=== PATIENT | male | born 1935 | race Caucasian/White ===

== ENCOUNTER 2023-05-12 07:49 | Inpatient (IN) | payer MEDICARE, BC ==
[~2023-05-12] VITALS: Ht 165.1 cm; Wt 67.1 kg
[2023-05-12] MEDS ORDERED: VANCOMYCIN 1 GM in IV D5W 250 ML IV ONE (08:00)
[2023-05-12] MEDS ORDERED: CEFEPIME 1 GM in IV D5W 50 ML IV ONE ×2 (08:00→14:00)
[2023-05-12] MEDS ORDERED: SEMA0.25 SQ (08:27)
[2023-05-12] MEDS ORDERED: PANT40TA2 PO (08:27)
[2023-05-12] MEDS ORDERED: GUAI100S11 PO (08:27)
[2023-05-12] MEDS ORDERED: TRIA80OI TP (08:27)
[2023-05-12] MEDS ORDERED: INSU100V37 SQ (08:27)
[2023-05-12] MEDS ORDERED: LIDO30CR TP (08:27)
[2023-05-12] MEDS ORDERED: BENZ-13 PO (08:27)
[2023-05-12] MEDS ORDERED: ALLO100T56 PO (08:27)
[2023-05-12] MEDS ORDERED: POLY17PO4 PO (08:27)
[2023-05-12] MEDS ORDERED: APIX2.5T PO (08:27)
[2023-05-12] MEDS ORDERED: LUBI24CA5 PO (08:27)
[2023-05-12] MEDS ORDERED: ATOR10TA PO (08:27)
[2023-05-12] MEDS ORDERED: CHOL100043 PO (08:27)
[2023-05-12] MEDS ORDERED: MELA5TAB PO (08:27)
[2023-05-12] MEDS ORDERED: AMLO-212 PO (08:27)
[2023-05-12] MEDS ORDERED: THIA100T70 PO (08:27)
[2023-05-12] MEDS ORDERED: SENN-261 PO (08:27)
[2023-05-12] MEDS ORDERED: VENL37.55 PO (08:27)
[2023-05-12] MEDS ORDERED: CEFD300C3 PO (08:27)
[2023-05-12] MEDS ORDERED: MIRT7.5T10 PO (08:27)
[2023-05-12] MEDS ORDERED: ACET-2605 PO (08:27)
[2023-05-12] MEDS ORDERED: ASPI-1420 PO (08:27)
[2023-05-12] MEDS ORDERED: CARV3.122 PO (08:27)
[2023-05-12] MEDS ORDERED: BISA10SU11 RC (08:27)
[2023-05-12 08:51] LABS: ABG BASE EXCESS -3.2 mmol/L; ABG OXYGEN SATURATION 98.4 % (92.0-98.5); ABG PH 7.448 (7.350-7.450); ABG PO2 145.3 mmHg (75.0-100.0); ABG TOTAL HEMOGLOBIN 8.2 G/dL (13.5-18.0); COHb 0.2 % (0.5-1.5); MetHb 0.3 % (0.0-1.5); O2Hb 97.9 % (94.0-97.0); SITE, ABG Left Radial; VENT MODE, BG NRB @15L
[2023-05-12 09:06] LABS: CALCIUM, SERUM 8.5 mg/dL (8.5-10.1); CARBON DIOXIDE 23 mmol/L (21-32); CHLORIDE 101 mmol/L (98-107); CREATININE 1.6 mg/dL (0.6-1.3); GLUCOSE 193 mg/dL (74-106); POTASSIUM 3.8 mmol/L (3.5-5.1); SODIUM SERUM 133 mmol/L (136-145); UREA NITROGEN, BLOOD 16 mg/dL (7-18)
[2023-05-12 09:11] LABS: INR 1.15 (0.91-1.10); PARTIAL THROMBOPLASTIN TIME 30.9 SEC (24.3-34.3); PROTHROMBIN TIME 12.1 SECS (9.2-11.1)
[2023-05-12 09:12] LABS: ALANINE AMINOTRANSFERASE 17 U/L (12-78); ALBUMIN 2.2 g/dL (3.4-5.0); ALKALINE PHOSPHATASE 153 U/L (46-116); ASPARTATE AMINOTRANSFERASE 20 U/L (15-37); BILIRUBIN,DIRECT 0.5 mg/dL (0.0-0.2); BILIRUBIN,TOTAL 0.9 mg/dL (0.2-1.0); TOTAL PROTEIN, SERUM 6.6 g/dL (6.4-8.2)
[2023-05-12 09:15] LABS: LACTIC ACID 1.3 mmol/L (0.4-2.0)
[2023-05-12 09:24] LABS: BASOPHILS % (AUTO) 0.5 % (0.0-2.0); EOSINOPHILS % (AUTO) 0.5 % (0.0-6.0); HEMATOCRIT 27 % (39-51); HEMOGLOBIN 8.6 g/dL (13.5-17.5); LYMPHOCYTES # (AUTO) 0.9 K/uL (0.8-4.8); LYMPHOCYTES % (AUTO) 13.9 % (20.0-44.0); MEAN CORPUSCULAR HEMOGLOBIN 20 PG (26.0-33.0); MEAN CORPUSCULAR HGB CONC 32 g/dl (31.0-36.0); MEAN CORPUSCULAR VOLUME 64 fL (80-96); MONOCYTES # (AUTO) 0.3 K/uL (0.1-1.30); NEUTROPHILS # (AUTO) 5.4 K/uL (1.8-8.9); NEUTROPHILS % (AUTO) 80.1 % (43.0-81.0); PLATELET COUNT (AUTO) 294 K/uL (150-450); RED BLOOD CELL COUNT(AUTO) 4.26 MIL/uL (4.5-6.0); RED CELL DISTRIBUTION WIDTH 26.9 % (11.5-15.0); WHITE BLOOD COUNT (AUTO) 6.7 K/uL (4.3-11.0)
[2023-05-12] MEDS ORDERED: ACETAMINOPHEN 325 MG TABLET PO PRN (12:30)
[2023-05-12] MEDS ORDERED: GUAIFENESIN 300 MG/15 ML UDC PO PRN (12:30)
[2023-05-12] MEDS ORDERED: DEXTROSE 50%-WATER 50 ML DISP.SYRIN IV PRN ×2 (12:30)
[2023-05-12] MEDS ORDERED: Medication Not On Formulary EA (Melatonin 5 MG) PO PRN (12:30)
[2023-05-12] MEDS ORDERED: BENZONATATE 100 MG CAPSULE PO PRN (12:30)
[2023-05-12] MEDS ORDERED: MAGNESIUM HYDROXIDE 30 ML UDC PO PRN (12:30)
[2023-05-12] MEDS ORDERED: Z GUARD REMEDY 4 OZ OINT TP PRN (12:30)
[2023-05-12] MEDS ORDERED: BISACODYL SUPP (10 MG) 10 MG/SUPP.RECT SUPP.RECT RC PRN (12:30)
[2023-05-12] MEDS ORDERED: LIDOCAINE/PRILOCAINE (5GM) 5 GM TUBE TP PRN (12:30)
[2023-05-12] MEDS ORDERED: MAG HYDROX/AL HYDROX/SIMETH 30 ML UDC PO PRN (12:30)
[2023-05-12] MEDS ORDERED: ACETAMINOPHEN ES 500 MG TABLET PO PRN (12:30)
[2023-05-12] MEDS ORDERED: INSULIN REGULAR, HUMAN 100 UNIT/ML 3 ML VIAL SQ PRN (12:30)
[2023-05-12] MEDS ORDERED: ZOLPIDEM TARTRATE 5 MG TABLET PO PRN (12:30)
[2023-05-12] MEDS ORDERED: FUROSEMIDE 40 MG/4 ML VIAL IV ONE ×2 (12:30)
[2023-05-12] MEDS ORDERED: ONDANSETRON HCL/PF 4 MG/2 ML VIAL IVP PRN (12:30)
[2023-05-12] MEDS: POLYETHYLENE GLYCOL 3350 17 GM POWD.PACK PO SCH ×3 (13:52→21:31)
[2023-05-12 15:39] VITALS: BP 146/78; TEMP 98.2; O2SAT 98
[2023-05-12 16:00] VITALS: BP 147/78; TEMP 99; O2SAT 99
[2023-05-12] MEDS ORDERED: Medication Not On Formulary EA (Lubiprostone (Amitiza) 24 MCG) PO SCH (17:00)
[2023-05-12] MEDS: BLOOD SUGAR DIAGNOSTIC 1 EACH STRIP IN SCH ×2 (17:18→21:29)
[2023-05-12] MEDS: APIXABAN 2.5 MG TABLET PO SCH (17:18)
[2023-05-12] MEDS: INSULIN REGULAR, HUMAN 100 UNIT/ML 3 ML VIAL SQ PRN ×2 (17:24→21:29)
[2023-05-12] MEDS ORDERED: BLOOD SUGAR DIAGNOSTIC 1 EACH STRIP IN SCH (17:30)
[2023-05-12 20:00] VITALS: BP 141/86; TEMP 98.2; O2SAT 99
[2023-05-12] MEDS: SENNOSIDES 8.6 MG TABLET PO SCH (21:30)
[2023-05-12] MEDS: ATORVASTATIN 10 MG TABLET PO SCH (21:30)
[2023-05-12] MEDS: CARVEDILOL 3.125 MG TABLET PO SCH (21:30)
[2023-05-12] MEDS: MIRTAZAPINE 15 MG TABLET PO SCH (21:31)
[2023-05-13] VITALS: BP 133/73; TEMP 98.4; O2SAT 100
[2023-05-13 04:00] VITALS: BP 111/60; TEMP 98; O2SAT 99
[2023-05-13 05:52] LABS: BASOPHILS % (AUTO) 0.6 % (0.0-2.0); EOSINOPHILS % (AUTO) 0.6 % (0.0-6.0); HEMATOCRIT 25 % (39-51); HEMOGLOBIN 7.7 g/dL (13.5-17.5); LYMPHOCYTES # (AUTO) 1.8 K/uL (0.8-4.8); LYMPHOCYTES % (AUTO) 30.7 % (20.0-44.0); MEAN CORPUSCULAR HEMOGLOBIN 20 PG (26.0-33.0); MEAN CORPUSCULAR HGB CONC 31 g/dl (31.0-36.0); MEAN CORPUSCULAR VOLUME 64 fL (80-96); MONOCYTES # (AUTO) 0.6 K/uL (0.1-1.30); MONOCYTES % (AUTO) 9.6 % (2.0-12.0); NEUTROPHILS # (AUTO) 3.4 K/uL (1.8-8.9); NEUTROPHILS % (AUTO) 58.5 % (43.0-81.0); PLATELET COUNT (AUTO) 258 K/uL (150-450); RED BLOOD CELL COUNT(AUTO) 3.89 MIL/uL (4.5-6.0); RED CELL DISTRIBUTION WIDTH 26.8 % (11.5-15.0); WHITE BLOOD COUNT (AUTO) 5.8 K/uL (4.3-11.0)
[2023-05-13 06:06] LABS: CHOLESTEROL 78 mg/dL (<200); HDL CHOLESTEROL 38 mg/dL (40-60); TRIGLYCERIDES 77 mg/dL (30-150)
[2023-05-13 06:15] LABS: CALCIUM, SERUM 8.2 mg/dL (8.5-10.1); CARBON DIOXIDE 25 mmol/L (21-32); CHLORIDE 100 mmol/L (98-107); CREATININE 1.6 mg/dL (0.6-1.3); GLUCOSE 144 mg/dL (74-106); MAGNESIUM 1.3 mg/dL (1.8-2.4); PHOSPHORUS 4.2 mg/dL (2.5-4.9); POTASSIUM 3.6 mmol/L (3.5-5.1); SODIUM SERUM 134 mmol/L (136-145); UREA NITROGEN, BLOOD 18 mg/dL (7-18)
[2023-05-13 06:16] LABS: LDL 36 mg/dL (0-99)
[2023-05-13 07:07] LABS: APPEARANCE,URINE CLEAR (CLEAR); BILIRUBIN,URINE NEGATIVE (NEGATIVE); BLOOD, URINE TRACE-INTA Ery/uL (NEGATIVE); COLOR,URINE YELLOW (YELLOW); KETONES,URINE NEGATIVE (NEGATIVE); LEUKOCYTE ESTERASE ,URINE NEGATIVE (NEGATIVE); NITRITE, URINE NEGATIVE (NEGATIVE); PH,URINE 5.5 (5.0-8.0); PROTEIN,URINE 2+ mg/dl (NEGATIVE); UGLUCOSE TRACE mg/dL (NEGATIVE); UROBILINOGEN,URINE 0.2 EU/dL (0.2)
[2023-05-13] MEDS: BLOOD SUGAR DIAGNOSTIC 1 EACH STRIP IN SCH ×4 (07:30→21:41)
[2023-05-13 07:53] LABS: ADD URINE CULTURE NO; BACTERIA,URINE Rare /HPF (None Seen); RBC,URINE 0-2 /HPF (0-2); WBC,URINE 0-2 /HPF (0-3)
[2023-05-13 07:54] LABS: SQUAMOUS EPITHELIAL CELL,UR Rare /HPF (None Seen); YEAST,URINE Few /HPF (None Seen)
[2023-05-13 08:00] VITALS: BP 149/69; TEMP 98; O2SAT 99
[2023-05-13] MEDS ORDERED: ASPIRIN EC 81 MG TABLET.DR PO SCH (09:00)
[2023-05-13] MEDS ORDERED: MAGNESIUM OXIDE 400 MG TABLET PO ONE (10:00)
[2023-05-13] MEDS: ASPIRIN 81 MG TAB.CHEW PO SCH (10:24)
[2023-05-13] MEDS: POLYETHYLENE GLYCOL 3350 17 GM POWD.PACK PO SCH ×4 (10:24→21:30)
[2023-05-13] MEDS: THIAMINE HCL 100 MG TABLET PO SCH (10:24)
[2023-05-13] MEDS: CHOLECALCIFEROL 1,000 UNIT TABLET (VIT D3) PO SCH (10:24)
[2023-05-13] MEDS: CARVEDILOL 3.125 MG TABLET PO SCH ×2 (10:25→21:30)
[2023-05-13] MEDS: ALLOPURINOL 100 MG TABLET PO SCH (10:25)
[2023-05-13] MEDS: AMLODIPINE BESYLATE 5 MG TABLET PO SCH (10:25)
[2023-05-13] MEDS: PANTOPRAZOLE 40 MG TABLET.DR PO SCH (10:25)
[2023-05-13] MEDS: VENLAFAXINE XR 37.5 MG CAP.SR.24H PO SCH (10:25)
[2023-05-13] MEDS: VANCOMYCIN HCL 0.75 GM in IV D5W 250 ML IV SCH (10:35)
[2023-05-13] MEDS: POTASSIUM CHLORIDE 20 MEQ TAB.PRT.SR PO SCH ×3 (10:35→16:34)
[2023-05-13] MEDS: FUROSEMIDE 40 MG/4 ML VIAL IV SCH ×3 (10:35→16:35)
[2023-05-13 12:00] VITALS: BP_SYST 124; BP_SYST 135; BP_DIAS 54; TEMP 98.4; TEMP 98.5; O2SAT 99
[2023-05-13] MEDS: Magnesium 1GM/D5W 100ML PREMIX 100 ML IV SCH ×2 (12:39→13:50)
[2023-05-13] MEDS: APIXABAN 2.5 MG TABLET PO SCH ×2 (12:49→16:44)
[2023-05-13] MEDS: INSULIN REGULAR, HUMAN 100 UNIT/ML 3 ML VIAL SQ PRN ×3 (13:00→21:45)
[2023-05-13] MEDS ORDERED: CEFEPIME 1 GM in IV D5W 50 ML IV SCH (14:00)
[2023-05-13] MEDS ORDERED: CEFEPIME 2 GM in IV D5W 100 ML IV SCH (14:00)
[2023-05-13 16:00] VITALS: BP 124/54; TEMP 98.4; O2SAT 99
[2023-05-13 20:00] VITALS: BP 114/62; TEMP 98.2; O2SAT 99
[2023-05-13] MEDS: MIRTAZAPINE 15 MG TABLET PO SCH (21:31)
[2023-05-13] MEDS: ATORVASTATIN 10 MG TABLET PO SCH (21:31)
[2023-05-13] MEDS: SENNOSIDES 8.6 MG TABLET PO SCH (21:31)
[2023-05-14] VITALS: BP 128/57; TEMP 98.2; O2SAT 99
[2023-05-14 04:00] VITALS: BP 136/65; TEMP 97.6; O2SAT 97
[2023-05-14 05:08] LABS: HEPATITIS B SURFACE AB Non Reactive (.)
[2023-05-14 07:18] LABS: BASOPHILS % (AUTO) 0.8 % (0.0-2.0); EOSINOPHILS % (AUTO) 0.9 % (0.0-6.0); HEMATOCRIT 26 % (39-51); HEMOGLOBIN 8.3 g/dL (13.5-17.5); LYMPHOCYTES # (AUTO) 1.4 K/uL (0.8-4.8); LYMPHOCYTES % (AUTO) 26.6 % (20.0-44.0); MEAN CORPUSCULAR HEMOGLOBIN 20 PG (26.0-33.0); MEAN CORPUSCULAR HGB CONC 32 g/dl (31.0-36.0); MEAN CORPUSCULAR VOLUME 63 fL (80-96); MONOCYTES # (AUTO) 0.4 K/uL (0.1-1.30); MONOCYTES % (AUTO) 7.4 % (2.0-12.0); NEUTROPHILS # (AUTO) 3.5 K/uL (1.8-8.9); NEUTROPHILS % (AUTO) 64.3 % (43.0-81.0); PLATELET COUNT (AUTO) 281 K/uL (150-450); RED BLOOD CELL COUNT(AUTO) 4.14 MIL/uL (4.5-6.0); WHITE BLOOD COUNT (AUTO) 5.4 K/uL (4.3-11.0)
[2023-05-14] MEDS: PANTOPRAZOLE 40 MG TABLET.DR PO SCH (07:38)
[2023-05-14 07:40] LABS: ALANINE AMINOTRANSFERASE 24 U/L (12-78); ALBUMIN 2.2 g/dL (3.4-5.0); ALKALINE PHOSPHATASE 143 U/L (46-116); ASPARTATE AMINOTRANSFERASE 30 U/L (15-37); BILIRUBIN,TOTAL 0.9 mg/dL (0.2-1.0); CALCIUM, SERUM 8.9 mg/dL (8.5-10.1); CARBON DIOXIDE 27 mmol/L (21-32); CHLORIDE 99 mmol/L (98-107); CREATININE 1.9 mg/dL (0.6-1.3); GLUCOSE 166 mg/dL (74-106); MAGNESIUM 1.7 mg/dL (1.8-2.4); PHOSPHORUS 3.7 mg/dL (2.5-4.9); POTASSIUM 4.3 mmol/L (3.5-5.1); SODIUM SERUM 134 mmol/L (136-145); TOTAL PROTEIN, SERUM 6.7 g/dL (6.4-8.2); UREA NITROGEN, BLOOD 21 mg/dL (7-18)
[2023-05-14] MEDS: BLOOD SUGAR DIAGNOSTIC 1 EACH STRIP IN SCH ×3 (07:44→17:30)
[2023-05-14 07:56] LABS: CREATINE KINASE, TOTAL 15 U/L (39-308)
[2023-05-14 08:00] VITALS: BP 148/78; TEMP 97.9; O2SAT 100
[2023-05-14 08:37] LABS: IRON, SERUM 24 ug/dl (50-175); TOTAL IRON BINDING CAPACITY 200 ug/dl (250-450)
[2023-05-14] MEDS: POLYETHYLENE GLYCOL 3350 17 GM POWD.PACK PO SCH ×3 (08:45→16:47)
[2023-05-14] MEDS: CHOLECALCIFEROL 1,000 UNIT TABLET (VIT D3) PO SCH (08:45)
[2023-05-14] MEDS: AMLODIPINE BESYLATE 5 MG TABLET PO SCH (08:46)
[2023-05-14] MEDS: ASPIRIN 81 MG TAB.CHEW PO SCH (08:46)
[2023-05-14] MEDS: ALLOPURINOL 100 MG TABLET PO SCH (08:46)
[2023-05-14] MEDS: THIAMINE HCL 100 MG TABLET PO SCH (08:46)
[2023-05-14] MEDS: VENLAFAXINE XR 37.5 MG CAP.SR.24H PO SCH (08:46)
[2023-05-14] MEDS: CARVEDILOL 3.125 MG TABLET PO SCH (08:46)
[2023-05-14 08:50] LABS: FERRITIN 648 ng/mL (8-388)
[2023-05-14] MEDS: VANCOMYCIN HCL 0.75 GM in IV D5W 250 ML IV SCH (08:56)
[2023-05-14] MEDS: FUROSEMIDE 40 MG/4 ML VIAL IV SCH ×3 (08:56→16:47)
[2023-05-14] MEDS: APIXABAN 2.5 MG TABLET PO SCH ×2 (08:58→16:48)
[2023-05-14] MEDS: INSULIN REGULAR, HUMAN 100 UNIT/ML 3 ML VIAL SQ PRN ×3 (08:59→17:42)
[2023-05-14] MEDS ORDERED: Magnesium 1GM/D5W 100ML PREMIX 100 ML IV SCH (10:00)
[2023-05-14 12:00] VITALS: BP 123/55; TEMP 98.2; O2SAT 100
[2023-05-14 16:00] VITALS: BP 137/69; TEMP 98.4; O2SAT 100
[2023-05-15 07:07] LABS: PTH, INTACT 66 pg/mL (15-65)
[2023-05-15 12:07] LABS: *SPE A/G RATIO 0.8 (0.7-1.7); *SPE ALBUMIN 2.5 g/dL (2.9-4.4); *SPE ALPHA-1-GLOBULIN 0.4 g/dL (0.0-0.4); *SPE GLOBULIN, TOTAL 3.3 g/dL (2.2-3.9); *SPE M-SPIKE Not Observed g/dL (Not Observed); *SPE PROTEIN TOTAL 5.8 g/dL (6.0-8.5)
== END 2023-05-14 21:00 | disposition short-term general hospital (02) | DRG 280 ==
LOC: ER 07:52 → TELE1 12:36
PROVIDERS: ADMIT Nurse Practitioner Acute Care; ATTEND Internal Medicine
DX: I13.0 Hypertensive heart and chronic kidney disease with heart failure and stage 1 through stage 4 chronic kidney disease, or unspecified chronic kidney disease (principal); E43 Unspecified severe protein-calorie malnutrition; I21.A1 Myocardial infarction type 2; I50.33 Acute on chronic diastolic (congestive) heart failure; J96.01 Acute respiratory failure with hypoxia; N17.0 Acute kidney failure with tubular necrosis; J98.11 Atelectasis; E87.1 Hypo-osmolality and hyponatremia; Z20.822 Contact with and (suspected) exposure to COVID-19; E11.22 Type 2 diabetes mellitus with diabetic chronic kidney disease; E78.5 Hyperlipidemia, unspecified; G20.A1 Parkinson's disease without dyskinesia, without mention of fluctuations; F02.80 Dementia in other diseases classified elsewhere, unspecified severity, without behavioral disturbance, psychotic disturbance, mood disturbance, and anxiety; Z90.49 Acquired absence of other specified parts of digestive tract; Z85.46 Personal history of malignant neoplasm of prostate; Z79.4 Long term (current) use of insulin; Z79.899 Other long term (current) drug therapy; N18.9 Chronic kidney disease, unspecified; Z79.85 Long-term (current) use of injectable non-insulin antidiabetic drugs; Z79.01 Long term (current) use of anticoagulants; I48.0 Paroxysmal atrial fibrillation; E88.09 Other disorders of plasma-protein metabolism, not elsewhere classified; M89.8X9 Other specified disorders of bone, unspecified site; E83.42 Hypomagnesemia; I70.0 Atherosclerosis of aorta; M10.9 Gout, unspecified
CPT/HCPCS: 36415; 36600; 71045-TC; 76770-TC; 80048-TC; 80053-TC; 80061-TC; 80076-TC; 81001; 82550-TC; 82728-TC; 82803-TC; 82962-TC; 83540-TC; 83605-TC; 83735-TC; 83880; 83970; 84100-TC; 84155; 84165; 84484-TC; 85025-TC; 85730-TC; 86706; 87040-TC; 87086-TC; 87340; 92526; 92611-TC; 93307-TC; 94660; A4223; A4349; C9803; G0378; J0692; J1815; J1940; J3370; J3475; J7050; J7060